=== PATIENT | female | born 1990 | race Caucasian/White ===

== ENCOUNTER 2016-08-14 07:16 | Emergency (ER) | payer OTHER ==
--- NOTE | ~2016-08-14 | CT2 ---
[facility] A Service of [facility] & [facility] RADIOLOGY TEXT RESULTS PATIENT: RADHA DAVIES LOCATION: SED : [birth year] UNIT #: [id number] AGE: [address]: Chung Blackwell MD SEX: F ORDER DR: [id number] [place] [id number] E MR#: [id number] Acc #: [id number] NAME: RADHA DAVIES : 1990 SEX: F STUDY DATE/TIME: 08/14/2016 7:55 UNIT: SED ROOM: STUDY DESCRIPTION: CT Abd and Pelv W Cont Attending Physician: Chung Blackwell M.D. Ordering Physician: Shaan Oates M.D. Primary Care Physician: Generic Doctor Not In System MEDICAL IMAGING REPORT This report is preliminary unless electronic signature is present. EXAM CT of the abdomen and pelvis with contrast. INDICATION Chest, epigastric, and abdominal pain since Thursday. TECHNIQUE Axial CT images were obtained from the dome of the diaphragm through the symphysis pubis following the administration of intravenous contrast material. This CT exam was performed with one or more of the following radiation dose reduction techniques: automatic exposure control, adjustment of mA and/or kV according to patient size, and iterative reconstruction. FINDINGS This patient has several scattered noncalcified pulmonary nodules identified at the lung bases ranging in size from about 4-7 mm. These are of doubtful clinical significance in a patient of this age. Patient's liver is unremarkable with the exception of probably some focal fatty infiltration of the falciform ligament. Gallbladder is surgically absent. There is some mild extrahepatic biliary dilatation, likely postcholecystectomy in nature. Calcified granulomata are seen within the spleen. There is a small hiatal hernia. Proximal small bowel, adrenal glands, and pancreas are within normal limits, as are the kidneys. No free fluid or adenopathy is seen within the abdomen. The patient's appendix is surgically absent. Urinary bladder is within normal limits. Uterus is retroflexed. Patient does have an intrauterine device. This does appear to be eccentrically positioned with one of the tines apparently extending out into the myometrium. Referral back to the patient's brake lining maker is suggested. There is a peripherally enhancing structure seen within the left ovary, likely reflecting a hemorrhagic cyst. Small amount of free fluid is seen within the pelvis. [facility] A Service of [facility] RADIOLOGY TEXT RESULTS PATIENT: RADHA DAVIES LOCATION: [facility] [place] : [birth year] UNIT #: [id number] AGE: [address]: Chung Blackwell MD SEX: F ORDER DR: Review of bony windows does not demonstrate any aggressive osseous abnormalities. IMPRESSION. 1. No obvious etiology for the patient's symptomatology is identified. There is no evidence of mechanical bowel obstruction. Patient may have a small hiatal hernia. 2. Changes of prior cholecystectomy and appendectomy. 3. The patient's uterus is retroflexed. The intrauterine device appears to be eccentrically positioned and I think one of the tines extends outside of the endometrial canal. Potentially to or through the uterine wall. I would suggest referring the patient back to her brake lining maker for further evaluation. A small amount of free fluid is seen within the pelvis but certainly could be physiologic. Dictated by... Zoe Gardner M.D. THIS IS AN ELECTRONICALLY VERIFIED REPORT Zoe Gardner M.D. at 08/14/2016 4:37 PM AFF/[place] TD: 08/14/2016 11:05 JOB #: [id number] MEDICAL IMAGING REPORT Page 1 of 1
[~2016-08-14 07:16] MED LIST: NO MEDICATIONS
[2016-08-14 07:19] LABS: BASOPHIL# 0.2 X10e3 (0-0.3); BASOPHIL% 1.8 % (0-2.5); EOSINOPHIL% 0.2 % (0.0-7.0); HEMOGLOBIN 14.2 gm/dL (12.0-16.0); LYMPHOCYTE# 2.3 X10e3 (1.0-3.5); LYMPHOCYTE% 17.7 % (17.0-45.0); MEAN CELL VOLUME 81.9 FL (83-96); MEAN CORPUSCULAR HEMOGLOBIN 26.5 PG (28-34); MEAN CORPUSCULAR HGB CONC 32.3 g/dL (30-36); MEAN PLATELET VOLUME 8.5 FL (6.5-11.5); MONOCYTE# 0.8 X10e3 (0-1.0); MONOCYTE% 6.3 % (3.0-12.0); NEUTROPHIL# 9.7 X10e3 (1.5-7.1); PLATELET COUNT 329 X10e3 (140-420); RED BLOOD COUNT 5.37 X10e (3.90-5.30); RED CELL DISTRIBUTION WIDTH 13.8 % (11.0-15.5); WHITE BLOOD COUNT 13.2 X10e3 (4.0-10.5)
[2016-08-14 07:20] LABS: DIFF IND NO
[2016-08-14 07:39] LABS: ALBUMIN SERUM 4.5 g/dL (3.5-5.0); ALKALINE PHOSPHATASE 44 U/L (32-92); ALT (SGPT) 46 U/L (10-40); AMYLASE 15 U/L (0-46); AST (SGOT) 39 U/L (10-42); BILIRUBIN,TOTAL 0.6 mg/dL (0.2-2.0); BLOOD UREA NITROGEN 10 mg/dL (9-23); BUN/CREATININE RATIO 14.28; CALCIUM SERUM 9.1 mg/dL (8.4-10.2); CARBON DIOXIDE 28 mmol/L (22-31); CHLORIDE 93 mmol/L (100-111); CREATININE SERUM 0.7 mg/dL (0.6-1.4); GLOM FILT RATE Estimated ABOVE60 mL/min (>60); GLUCOSE FASTING 106 mg/dL (70-110); LIPASE 22 U/L (22-51); POTASSIUM 3.4 mmol/L (3.5-5.1); PROTEIN TOTAL SERUM 7.5 g/dL (6.0-8.3); SODIUM 133 mmol/L (135-145)
[2016-08-14 07:44] LABS: INFLUENZA A NEG (NEG); INFLUENZA B NEG (NEG)
== END 2016-08-14 09:34 | disposition home or self-care (01) ==
LOC: SED 07:16
DX: A08.4 Viral intestinal infection, unspecified (principal); N83.201 Unspecified ovarian cyst, right side; K44.9 Diaphragmatic hernia without obstruction or gangrene; F41.9 Anxiety disorder, unspecified; F32.9 Major depressive disorder, single episode, unspecified; Z90.49 Acquired absence of other specified parts of digestive tract; Z90.89 Acquired absence of other organs; F17.210 Nicotine dependence, cigarettes, uncomplicated; Z91.013 Allergy to seafood
CPT/HCPCS: 36415; 74177; 80053; 82150; 83690; 84703; 85025; 87804; 96374; 96375; 99284; J2270; J2405; J2550; Q9967